=== PATIENT | male | born 1960 | race Caucasian/White ===

== ENCOUNTER 2019-09-10 00:43 | Inpatient (IN) ==
[2019-09-10] MEDS ORDERED: 0.9 % Sodium Chloride 1,000 ML IVC ONE ×4 (01:31→03:36)
[2019-09-10] MEDS ORDERED: Piperacillin/Tazobactam 3.375 GM in Water for inj. (sterile) 20 ML IVP ONE (01:58)
[2019-09-10] MEDS ORDERED: Water for inj. (sterile) 20 ML IV ONE (02:14)
[2019-09-10] MEDS ORDERED: Piperacillin/Tazobactam 3.375 GM in 0.9 % Sodium Chloride Mini Bag 100 ML IVPB ONE (02:16)
[2019-09-10 02:28] LABS: Basophils % 0.2 %; Eosinophils # 0.1 K/mcL (0.0-0.6); Eosinophils % 0.7 %; Hematocrit 41.6 % (37.5-50.1); Hemoglobin 14.8 g/dL (12.9-16.9); Immature Granulocytes % 0.5 % (0-4); Lymphocytes # 0.6 K/mcL (0.6-4.6); Lymphocytes % 5.2 %; Mean Corpuscular HGB Conc 35.6 g/dL (31.6-35.5); Mean Corpuscular Hemoglobin 30.7 pg (28.0-33.3); Mean Corpuscular Volume 86.3 fL (83.0-100.0); Mean Platelet Volume 9.5 fL (9.4-12.4); Monocytes # 0.5 K/mcL (0.0-1.3); Monocytes % 4.2 %; Neutrophils # 10.1 K/mcL (1.6-8.9); Platelet Count 188 K/mcL (140-400); Red Blood Count 4.82 M/mcL (4.19-5.50); Red Cell Distribution Width 13.2 % (11.5-14.5); Segmented Neutrophils % 89.2 %; White Blood Count 11.3 K/mcL (4.3-11.1)
[2019-09-10 02:47] LABS: BUN/Creatinine Ratio 17 (6-26); Blood Urea Nitrogen 18 mg/dL (6-20); C-Reactive Protein 9 mg/L (Less than 10); Calcium 9.2 mg/dL (8.6-10.3); Carbon Dioxide 20 mEq/L (23-29); Chloride 112 mEq/L (98-107); Glucose 114 mg/dL (70-105); Osmolality,Calculated 289 (280-300); Potassium 3.6 mEq/L (3.5-5.1); Sodium 138 mEq/L (136-145); eGFR For African Americans > 60 (> 60); eGFR For Non-African Americans > 60 (> 60)
[2019-09-10] MEDS ORDERED: Ketorolac 15 MG/ML VIAL IVP ONE (03:06)
[2019-09-10] MEDS ORDERED: Morphine Sulfate Immed Rel 15 MG TABLET PO STA (03:39)
[2019-09-10] MEDS ORDERED: Naloxone 0.4 MG/ML INJ IVP PRN (07:05)
[2019-09-10] MEDS ORDERED: Isovue-370 500 ML BOTTLE IVP ONE (07:17)
[2019-09-10] MEDS ORDERED: NON-FORMULARY MEDICATION 1 EACH EACH (Omega-3/Dha/Epa/Fish Oil [Fish Oil 1,000 Mg Softgel] PO SCH (09:00)
[2019-09-10] MEDS ORDERED: Clindamycin 600 MG/50 ML 600 MG/50 ML IV.SOLN IVPB STA (09:08)
[2019-09-10] MEDS: Topiramate 100 MG TABLET PO SCH ×2 (09:27→20:33)
[2019-09-10] MEDS: Lisinopril 20 MG TABLET PO SCH (09:27)
[2019-09-10] MEDS: Multivit/Ca/Min/Fe/FA 1 TAB TABLET PO SCH ×2 (09:27→20:33)
[2019-09-10] MEDS: lamoTRIgine 100 MG TABLET PO SCH ×2 (09:27→20:33)
[2019-09-10] MEDS: Metoprolol XL (24 HR) Succ 50 MG TAB.ER.24H PO SCH (09:27)
[2019-09-10] MEDS: 0.9 % Sodium Chloride 1,000 ML IVC SCH ×2 (10:51→23:50)
[2019-09-10] MEDS: Ibuprofen 600 MG TABLET PO PRN (10:51)
[2019-09-10] MEDS ORDERED: *HR* OxyCODONE/APAP 10/325 TABLET PO ONE (15:42)
[2019-09-10] MEDS ORDERED: Clindamycin 600 MG/50 ML 600 MG/50 ML IV.SOLN IVPB SCH ×2 (16:00→17:30)
[2019-09-10] MEDS ORDERED: Piperacillin/Tazobactam 3.375 GM in 0.9 % Sodium Chloride Mini Bag 100 ML IVPB SCH (16:00)
[2019-09-10] MEDS: Cefepime HCl 2,000 MG in Water for inj. (sterile) 20 ML IVPB SCH ×2 (16:32→23:49)
[2019-09-10] MEDS: traZODone 50 MG TABLET PO SCH (20:33)
[2019-09-11] MEDS ORDERED: Acetaminophen 325 MG TABLET PO PRN (00:43)
[2019-09-11] MEDS: Ibuprofen 600 MG TABLET PO PRN ×2 (01:20→08:00)
[2019-09-11 03:55] LABS: Basophils % 0.3 %; Eosinophils % 0.1 %; Hematocrit 35.1 % (37.5-50.1); Immature Granulocytes % 0.7 % (0-4); Lymphocytes # 0.8 K/mcL (0.6-4.6); Lymphocytes % 6.7 %; Mean Corpuscular HGB Conc 35.3 g/dL (31.6-35.5); Mean Corpuscular Hemoglobin 30.2 pg (28.0-33.3); Mean Corpuscular Volume 85.6 fL (83.0-100.0); Mean Platelet Volume 10.1 fL (9.4-12.4); Monocytes # 0.6 K/mcL (0.0-1.3); Monocytes % 4.9 %; Neutrophils # 9.9 K/mcL (1.6-8.9); Platelet Count 159 K/mcL (140-400); Red Cell Distribution Width 13.7 % (11.5-14.5); Segmented Neutrophils % 87.3 %; White Blood Count 11.3 K/mcL (4.3-11.1)
[2019-09-11 03:56] LABS: Hemoglobin 12.4 g/dL (12.9-16.9)
[2019-09-11 04:15] LABS: BUN/Creatinine Ratio 14 (6-26); Blood Urea Nitrogen 13 mg/dL (6-20); Carbon Dioxide 18 mEq/L (23-29); Chloride 110 mEq/L (98-107); Glucose 110 mg/dL (70-105); Osmolality,Calculated 287 (280-300); Potassium 3.3 mEq/L (3.5-5.1); Sodium 138 mEq/L (136-145); eGFR For African Americans > 60 (> 60); eGFR For Non-African Americans > 60 (> 60)
[2019-09-11] MEDS: Lisinopril 20 MG TABLET PO SCH (07:55)
[2019-09-11] MEDS: Cefepime HCl 2,000 MG in Water for inj. (sterile) 20 ML IVPB SCH ×3 (07:55→23:42)
[2019-09-11] MEDS: Metoprolol XL (24 HR) Succ 50 MG TAB.ER.24H PO SCH (07:55)
[2019-09-11] MEDS: lamoTRIgine 100 MG TABLET PO SCH ×2 (07:55→20:38)
[2019-09-11] MEDS: Topiramate 100 MG TABLET PO SCH ×2 (07:55→20:38)
[2019-09-11] MEDS: Multivit/Ca/Min/Fe/FA 1 TAB TABLET PO SCH ×2 (07:55→20:38)
[2019-09-11] MEDS: *HR* OxyCODONE/APAP 7.5/325 TABLET PO PRN ×3 (10:16→23:49)
[2019-09-11] MEDS: traZODone 50 MG TABLET PO SCH (20:38)
[2019-09-11] MEDS: amLODIPine 5 MG TABLET PO SCH (20:38)
[2019-09-12 03:45] LABS: Hematocrit 36.6 % (37.5-50.1); Hemoglobin 12.3 g/dL (12.9-16.9); Mean Corpuscular HGB Conc 33.6 g/dL (31.6-35.5); Mean Corpuscular Hemoglobin 30.5 pg (28.0-33.3); Mean Corpuscular Volume 90.8 fL (83.0-100.0); Mean Platelet Volume 9.9 fL (9.4-12.4); Platelet Count 164 K/mcL (140-400); Red Blood Count 4.03 M/mcL (4.19-5.50); Red Cell Distribution Width 13.7 % (11.5-14.5); White Blood Count 8.5 K/mcL (4.3-11.1)
[2019-09-12 04:09] LABS: BUN/Creatinine Ratio 12 (6-26); Blood Urea Nitrogen 11 mg/dL (6-20); Calcium 8.2 mg/dL (8.6-10.3); Carbon Dioxide 18 mEq/L (23-29); Chloride 112 mEq/L (98-107); Glucose 116 mg/dL (70-105); Osmolality,Calculated 276 (280-300); Potassium 3.7 mEq/L (3.5-5.1); Sodium 133 mEq/L (136-145); eGFR For African Americans > 60 (> 60); eGFR For Non-African Americans > 60 (> 60)
[2019-09-12] MEDS: ARIPiprazole 10 MG TABLET PO SCH (08:35)
[2019-09-12] MEDS: lamoTRIgine 100 MG TABLET PO SCH ×2 (08:35→19:29)
[2019-09-12] MEDS: Lisinopril 20 MG TABLET PO SCH (08:35)
[2019-09-12] MEDS: Topiramate 100 MG TABLET PO SCH ×2 (08:36→19:28)
[2019-09-12] MEDS: Cefepime HCl 2,000 MG in Water for inj. (sterile) 20 ML IVPB SCH ×3 (08:36→23:50)
[2019-09-12] MEDS: Multivit/Ca/Min/Fe/FA 1 TAB TABLET PO SCH ×2 (08:36→19:29)
[2019-09-12] MEDS: Sennosides 8.6 MG TABLET PO SCH (08:36)
[2019-09-12] MEDS: Metoprolol XL (24 HR) Succ 50 MG TAB.ER.24H PO SCH (08:36)
[2019-09-12] MEDS: (Febuxostat [Uloric] 40 MG) PO SCH (08:37)
[2019-09-12] MEDS: *HR* OxyCODONE/APAP 7.5/325 TABLET PO PRN ×2 (08:42→19:29)
[2019-09-12] MEDS: traZODone 50 MG TABLET PO SCH (19:28)
[2019-09-12] MEDS: amLODIPine 5 MG TABLET PO SCH (19:29)
[2019-09-13 04:22] LABS: Hematocrit 40.2 % (37.5-50.1); Hemoglobin 13.8 g/dL (12.9-16.9); Mean Corpuscular HGB Conc 34.3 g/dL (31.6-35.5); Mean Corpuscular Hemoglobin 30.1 pg (28.0-33.3); Mean Corpuscular Volume 87.6 fL (83.0-100.0); Mean Platelet Volume 9.7 fL (9.4-12.4); Platelet Count 203 K/mcL (140-400); Red Blood Count 4.59 M/mcL (4.19-5.50); White Blood Count 6.4 K/mcL (4.3-11.1)
[2019-09-13 04:37] LABS: BUN/Creatinine Ratio 12 (6-26); Blood Urea Nitrogen 11 mg/dL (6-20); Calcium 9.1 mg/dL (8.6-10.3); Carbon Dioxide 22 mEq/L (23-29); Chloride 112 mEq/L (98-107); Glucose 104 mg/dL (70-105); Osmolality,Calculated 286 (280-300); Potassium 3.8 mEq/L (3.5-5.1); Sodium 138 mEq/L (136-145); eGFR For African Americans > 60 (> 60); eGFR For Non-African Americans > 60 (> 60)
[2019-09-13] MEDS: *HR* Heparin 5,000 UNIT/ML VIAL SQ SCH ×2 (06:29→16:01)
[2019-09-13] MEDS: ARIPiprazole 10 MG TABLET PO SCH (07:51)
[2019-09-13] MEDS: Topiramate 100 MG TABLET PO SCH ×2 (07:52→21:08)
[2019-09-13] MEDS: Metoprolol XL (24 HR) Succ 50 MG TAB.ER.24H PO SCH (07:52)
[2019-09-13] MEDS: Sennosides 8.6 MG TABLET PO SCH (07:52)
[2019-09-13] MEDS: Multivit/Ca/Min/Fe/FA 1 TAB TABLET PO SCH ×2 (07:53→21:08)
[2019-09-13] MEDS: lamoTRIgine 100 MG TABLET PO SCH ×2 (07:53→21:08)
[2019-09-13] MEDS: Lisinopril 20 MG TABLET PO SCH (07:53)
[2019-09-13] MEDS: (Febuxostat [Uloric] 40 MG) PO SCH (07:54)
[2019-09-13] MEDS: Cefepime HCl 2,000 MG in Water for inj. (sterile) 20 ML IVPB SCH ×3 (11:59→23:25)
[2019-09-13] MEDS: *HR* OxyCODONE/APAP 7.5/325 TABLET PO PRN ×2 (12:10→21:33)
[2019-09-13] MEDS: traZODone 50 MG TABLET PO SCH (21:08)
[2019-09-13] MEDS: amLODIPine 5 MG TABLET PO SCH (21:08)
[2019-09-14 04:22] LABS: Hematocrit 34.9 % (37.5-50.1); Mean Corpuscular HGB Conc 33.5 g/dL (31.6-35.5); Mean Corpuscular Hemoglobin 30.1 pg (28.0-33.3); Mean Corpuscular Volume 89.7 fL (83.0-100.0); Mean Platelet Volume 9.5 fL (9.4-12.4); Platelet Count 180 K/mcL (140-400); Red Blood Count 3.89 M/mcL (4.19-5.50); Red Cell Distribution Width 13.8 % (11.5-14.5); White Blood Count 5.2 K/mcL (4.3-11.1)
[2019-09-14 04:25] LABS: Hemoglobin 11.7 g/dL (12.9-16.9)
[2019-09-14 04:43] LABS: BUN/Creatinine Ratio 16 (6-26); Blood Urea Nitrogen 13 mg/dL (6-20); Calcium 8.6 mg/dL (8.6-10.3); Carbon Dioxide 22 mEq/L (23-29); Chloride 107 mEq/L (98-107); Glucose 106 mg/dL (70-105); Osmolality,Calculated 293 (280-300); Potassium 3.7 mEq/L (3.5-5.1); Sodium 141 mEq/L (136-145); eGFR For African Americans > 60 (> 60); eGFR For Non-African Americans > 60 (> 60)
[2019-09-14] MEDS: *HR* Heparin 5,000 UNIT/ML VIAL SQ SCH ×2 (06:01→16:24)
[2019-09-14] MEDS: Metoprolol XL (24 HR) Succ 50 MG TAB.ER.24H PO SCH (07:36)
[2019-09-14] MEDS: Lisinopril 20 MG TABLET PO SCH (07:36)
[2019-09-14] MEDS: ARIPiprazole 10 MG TABLET PO SCH (07:36)
[2019-09-14] MEDS: Topiramate 100 MG TABLET PO SCH ×2 (07:37→21:19)
[2019-09-14] MEDS: Multivit/Ca/Min/Fe/FA 1 TAB TABLET PO SCH ×2 (07:37→21:19)
[2019-09-14] MEDS: Sennosides 8.6 MG TABLET PO SCH (07:37)
[2019-09-14] MEDS: lamoTRIgine 100 MG TABLET PO SCH ×2 (07:37→21:19)
[2019-09-14] MEDS: (Febuxostat [Uloric] 40 MG) PO SCH (07:38)
[2019-09-14] MEDS: Cefepime HCl 2,000 MG in Water for inj. (sterile) 20 ML IVPB SCH ×2 (07:38→16:18)
[2019-09-14] MEDS: Ibuprofen 600 MG TABLET PO PRN (16:29)
[2019-09-14] MEDS: traZODone 50 MG TABLET PO SCH (21:19)
[2019-09-14] MEDS: amLODIPine 5 MG TABLET PO SCH (21:19)
[2019-09-15] MEDS: Cefepime HCl 2,000 MG in Water for inj. (sterile) 20 ML IVPB SCH ×2 (00:25→08:34)
[2019-09-15] MEDS: *HR* OxyCODONE/APAP 7.5/325 TABLET PO PRN ×2 (04:18→10:49)
[2019-09-15] MEDS: *HR* Heparin 5,000 UNIT/ML VIAL SQ SCH (05:15)
[2019-09-15 06:45] LABS: Hematocrit 35.2 % (37.5-50.1); Hemoglobin 12.1 g/dL (12.9-16.9); Mean Corpuscular HGB Conc 34.4 g/dL (31.6-35.5); Mean Corpuscular Volume 87.1 fL (83.0-100.0); Mean Platelet Volume 9.5 fL (9.4-12.4); Platelet Count 201 K/mcL (140-400); Red Blood Count 4.04 M/mcL (4.19-5.50); Red Cell Distribution Width 13.5 % (11.5-14.5); White Blood Count 5.7 K/mcL (4.3-11.1)
[2019-09-15 06:58] LABS: BUN/Creatinine Ratio 17 (6-26); Blood Urea Nitrogen 14 mg/dL (6-20); Calcium 8.7 mg/dL (8.6-10.3); Carbon Dioxide 21 mEq/L (23-29); Chloride 111 mEq/L (98-107); Glucose 111 mg/dL (70-105); Osmolality,Calculated 291 (280-300); Sodium 140 mEq/L (136-145); eGFR For African Americans > 60 (> 60); eGFR For Non-African Americans > 60 (> 60)
[2019-09-15] MEDS: Multivit/Ca/Min/Fe/FA 1 TAB TABLET PO SCH (08:33)
[2019-09-15] MEDS: ARIPiprazole 10 MG TABLET PO SCH (08:34)
[2019-09-15] MEDS: Lisinopril 20 MG TABLET PO SCH (08:34)
[2019-09-15] MEDS: Sennosides 8.6 MG TABLET PO SCH (08:34)
[2019-09-15] MEDS: Topiramate 100 MG TABLET PO SCH (08:34)
[2019-09-15] MEDS: lamoTRIgine 100 MG TABLET PO SCH (08:34)
[2019-09-15] MEDS: Metoprolol XL (24 HR) Succ 50 MG TAB.ER.24H PO SCH (08:34)
[2019-09-15] MEDS: (Febuxostat [Uloric] 40 MG) PO SCH (08:35)
[2019-09-15 11:38] VITALS: BP 138/82
[2019-09-15] MEDS ORDERED: Aminoglycoside Consult 1 EACH MC ONE (14:59)
== END 2019-09-15 15:00 | disposition home or self-care (01) | DRG 872 ==
LOC: EMEROOARM 00:43 → 3BNU 00:43
PROVIDERS: ADMIT Internal Medicine; ATTEND Internal Medicine